=== PATIENT | male | born 1940 | race Caucasian/White ===

== ENCOUNTER 2020-03-02 12:10 | Observation (INO) ==
[2020-03-02 13:23] LABS: ABS Eosinophils 0.2 10^3/ul (0-0.6); ABS Lymphocytes 1.1 10^3/ul (1.0-4.8); ABS Monocytes 0.8 10^3/ul (0-0.8); Eosinophil % 2.9 %; Hematocrit 45 % (42-52); Hemoglobin 15.2 g/dL (14.0-18.0); Lymphocyte % 20.5 %; Mean Corpuscular HGB Conc 34 g/dL (31-36); Mean Corpuscular Hemoglobin 31 pg (27-31); Mean Corpuscular Volume 91 fL (80-94); Mean Platelet Volume 8.9 fL (7.4-10.4); Platelet Count 183 10^3/uL (150-450); Red Blood Count 4.93 10^6 /uL (4.18-5.48); Red Cell Distribution Width 13 % (10-15); White Blood Count 5.5 10^3/uL (3.5-10.8)
[2020-03-02 13:43] LABS: Albumin 4.1 g/dL (3.2-5.2); Albumin/Globulin Ratio 1.7 (1-3); BUN/Creatinine Ratio 12.1 (8-20); Calcium 9.2 mg/dL (8.6-10.3); EGFR African American 96.8 (>60); Globulin 2.4 g/dL (2-4); Magnesium 1.9 mg/dL (1.9-2.7); Potassium 4.4 mmol/L (3.5-5.0); Total Bilirubin 0.7 mg/dL (0.2-1.0); Total Protein 6.5 g/dL (6.4-8.9)
[2020-03-02] MEDS ORDERED: Iohexol 350 (CONTRAST) 500 ML MDV IV ONE (13:47)
[2020-03-02] MEDS ORDERED: hydrALAZINE 20 mg/ml 1 ML Vial IV IV SLOW PU ONE (14:24)
[2020-03-02] MEDS ORDERED: hydrALAZINE 20 mg/ml 1 ML Vial IV IV SLOW PU PRN (14:47)
[2020-03-02] MEDS: NS 0.9% 1000 ml BAG 1,000 ML IV SCH ×2 (15:14→17:03)
[2020-03-02] MEDS: Enoxaparin 40 MG/0.4 ML SYR(*) SUBCUT SCH (17:03)
[2020-03-03] MEDS: NS 0.9% 1000 ml BAG 1,000 ML IV SCH ×2 (00:24→07:06)
[2020-03-03 06:46] LABS: BUN/Creatinine Ratio 12.8 (8-20); EGFR African American 103.3 (>60); EGFR Non-African American 85.4 (>60); Potassium 4.3 mmol/L (3.5-5.0)
[2020-03-03 06:59] LABS: TSH (Thyroid Stimulating Horm) 3.26 mcIU/mL (0.34-5.60)
[2020-03-03 08:44] LABS: HDL Cholesterol 44.4 mg/dL
[2020-03-03 11:49] LABS: C Reactive Protein 2.74 mg/L (<8.01)
[2020-03-03] MEDS: Enoxaparin 40 MG/0.4 ML SYR(*) SUBCUT SCH (15:25)
[2020-03-03 17:37] VITALS: BP 148/77
== END 2020-03-03 18:35 | disposition home or self-care (01) ==
LOC: ED 12:10 → MEDTELE 12:10
PROVIDERS: ADMIT Internal Medicine; ATTEND Internal Medicine